=== PATIENT | male | born 2000 | race Caucasian/White ===

== ENCOUNTER → 2021-05-10 | Outpatient (CLI) | payer BC, OTHER ==
--- NOTE | 2021-05-10 16:29 | DIREP ---
PROCEDURE:CHEST 2 VIEWS COMPARISON:None. INDICATIONS:R07.9 CHEST PAIN FINDINGS: LUNGS/PLEURA:No significant pulmonary parenchymal abnormalities. No effusions. VASCULATURE:Normal. Unremarkable pulmonary vasculature. CARDIAC:Normal. No cardiac silhouette abnormality or cardiomegaly. MEDIASTINUM:Normal. No visible mass or adenopathy. BONES:Normal. No fracture or visible bony lesion. OTHER:Negative. CONCLUSION:Normal examination. Dictated by: August Dowd M.D. on 05/10/2021 at 04:27 PM
== END | disposition home or self-care (01) ==
LOC: RAD 15:51
PROVIDERS: ATTEND Nurse Practitioner Adult Health
DX: R07.9 Chest pain, unspecified (principal)
CPT/HCPCS: 71046